=== PATIENT | male | born 1960 | race Caucasian/White ===

== ENCOUNTER 2020-03-13 13:52 | Outpatient (CLI) | payer OTHER, SELFPAY ==
--- NOTE | ~2020-03-13 | XR_ITS ---
XR chest 2V DATE: 03/13/2020 14:25 INDICATION: Chronic shortness of breath. Hypertension. History of asbestos exposure. TECHNIQUE: 2 views COMPARISON: None FINDINGS: Normal heart size. No hilar or mediastinal enlargement. No pulmonary infiltrate or consolid ation, pleural effusion or pulmonary vascular congestion or pneumothorax. No pleural calcification is identified. Status post anterior cervical thoracic spine surgical fusion. Diffuse idiopathic skeletal hyperostosis and mild dextro scoliosis of the thoracic spine. IMPRESSION: No active cardiopulmonary disease Reviewed, dictated and finalized at location B. RVISOR CORDUROY CUTTING
== END 2020-03-13 13:53 | disposition home or self-care (01) ==
PROVIDERS: PCP Family Medicine; Visit Provider Family Medicine
DX: I10 Essential (primary) hypertension (principal)
CPT/HCPCS: 71046

== ENCOUNTER 2020-05-23 16:11 | Inpatient (IN) | payer OTHER, SELFPAY ==
--- NOTE | ~2020-05-23 | CT_ITS ---
EXAMINATION: CT thoracic spine wo con DATE: 05/23/2020 18:01 INDICATION: Back pain. TECHNIQUE: Computed tomography (CT) of the thoracic spine was performed without intravenous contrast. Automated exposure control and iterative reconstruction technique were employed. The dose-length pro duct was 1769.78 mGy-cm. COMPARISON: None FINDINGS: There is 7 degrees dextrocurvature of the thoracic spine. Vertebral body heights are normal . There are changes of anterior fusion procedure from C5 to C7 with anterior plate and screws and hea led interbody bone graft. There is mildly decreased disc height at most levels of thoracic spine. The re is multilevel facet joint osteoarthritis, severe on the right at T3-T4 and T5-T6 and severe on the left at T10-T11. There is multilevel level mild neural foraminal stenosis. There is moderate neural foraminal stenosis on the right at T6-T7 and T10-T11 and on the left at T9-T10 and T10-T11. There is mild central canal stenosis at T7-T8, T9-T10, and T10-T11. IMPRESSION: 1. Mild thoracic spondylosis. 2. Anterior fusion procedure from C5 to C7. Reviewed, dictated and finalized at location A. ENTRATOR OPERATOR
--- NOTE | ~2020-05-23 | CT_ITS ---
EXAMINATION: CT brain wo con DATE: 05/23/2020 18:00 INDICATION: Headache. TECHNIQUE: Computed tomography (CT) of the head was performed without intravenous contrast. The mA wa s adjusted according to patient size. Iterative reconstruction technique was employed. The dose-lengt h product was 605.33 mGy-cm. COMPARISON: None FINDINGS: There is no intracranial hemorrhage, acute infarction, or abnormal intracranial mass lesion . There are scattered areas of low attenuation in the cerebral white matter. The ventricles are latanya l in size. The orbits are normal. The paranasal sinuses are clear. The mastoid air cells are normal. IMPRESSION: 1. Mild nonspecific cerebral white matter disease, which likely represents chronic small vessel ische narendra disease. Reviewed, dictated and finalized at location A. Y SPREADER HELPER IMPRESSION: 1. Mild nonspecific cerebral white matter disease, which likely represents elderly sitter sharmila small vessel ischemic disease.
--- NOTE | ~2020-05-23 | CT_ITS ---
EXAMINATION: CT cervical spine wo con DATE: 05/23/2020 18:00 INDICATION: Neck injury. TECHNIQUE: Computed tomography (CT) of the cervical spine was performed without intravenous contrast. Automated exposure control and iterative reconstruction technique were employed. The dose-length pro duct was 448.80 mGy-cm. COMPARISON: None FINDINGS: There is kyphosis of upper cervical spine. Vertebral body heights are normal. There are walt nges of anterior fusion procedure from C5 to C7 with healed interbody bone graft and anterior plate a nd screws. There is mildly decreased disc height at C3-C4 and C7-T1 and moderately decreased disc hei ght at C4-C5. The osseous central spinal canal is developmentally small from C1 to C7. The following disc levels are specifically discussed: C2-C3: There is ankylosis of the uncovertebral joints without hypertrophy. There is ankylosis of the facet joints with mild right and severe left hypertrophy. There is mild left neural foraminal stenosi s. There is no central canal stenosis. C3-C4: There is moderate bilateral uncovertebral joint osteoarthritis. There is severe bilateral face t joint osteoarthritis. There is moderate bilateral neural foraminal stenosis. There is mild central canal stenosis. C4-C5: There is moderate and severe left uncovertebral joint osteoarthritis. There is mild right and severe left facet joint osteoarthritis. There is mild right and moderate left neural foraminal stenos is. There is moderate central canal stenosis. C5-C6: There is no uncovertebral joint hypertrophy. There is ankylosis of the facet joints without hy pertrophy. There is no neural foraminal stenosis. There is mild central canal stenosis. C6-C7: There is mild bilateral uncovertebral joint hypertrophy. There is ankylosis of the facet joint s with mild bilateral hypertrophy. There is mild bilateral neural foraminal stenosis. There is mild c entral canal stenosis. C7-T1: There is mild bilateral uncovertebral joint osteoarthritis. There is severe bilateral facet jeane int osteoarthritis. There is mild bilateral neural foraminal stenosis. There is mild central canal st enosis. IMPRESSION: 1. No fracture. 2. Moderate cervical spondylosis. 3. Anterior fusion procedure from C5 to C7. Reviewed, dictated and finalized at location A. AIGN MARKETING MANAGER
--- NOTE | ~2020-05-23 | XR_ITS ---
EXAMINATION: XR chest 2V DATE: 05/23/2020 18:01 INDICATION: Generalized weakness. TECHNIQUE: Frontal and lateral views of the chest were obtained. COMPARISON: Chest 2 views 03/13/2020 FINDINGS: The chest demonstrates clear lungs without pneumonia, pleural effusion, or pneumothorax. Th e heart size is normal. There are changes of anterior fusion procedure in cervical spine. IMPRESSION: 1. No acute cardiopulmonary disease. Reviewed, dictated and finalized at location A. TING MACHINE OPERATOR
[2020-05-23 16:33] VITALS: BP 114/87; PULSE 73; RESP 20; TEMP 35.9; O2SAT 99
--- NOTE | 2020-05-23 16:49 | ECG_ITS ---
Measurements Intervals [place] Rate: 73 P: 51 UT: 208 QRS: -56 QRSD: 120 T: 37 QT: 359 QTc: 398 Interpretive Statements SINUS RHYTHM WITH FIRST DEGREE AV BLOCK INCOMPLETE LEFT BUNDLE BRANCH BLOCK LEFT ANTERIOR FASCICULAR BLOCK BASELINE ARTIFACT- I, II, AVF, V3 ABNORMAL ECG Electronically Signed On 05-23-2020 19:03:32 HANDBAG FINISHER by Rene Mccormick D.O.
[2020-05-23] MEDS: SODIUM CHLORIDE 0.9% IV 1,000 ML 999 ML IV CONT ×2 (17:08→18:16)
[2020-05-23 17:30] VITALS: BP 116/80; PULSE 73; RESP 16
[2020-05-23 17:38] LABS: Basophils Absolute Auto 0.07 K/mm3 (0.00-0.10); Basophils Percent Auto 0.9 % (0.0-1.0); Eosinophils Absolute Auto 0.08 K/mm3 (0.02-0.50); Hemoglobin 16.2 g/dL (14.0-18.0); Immature Granulocyte Absolute 0.03 K/mm3 (0.00-0.00); Immature Granulocyte Percent A 0.4 % (0.0-0.0); Lymphocytes Absolute Auto 2.04 K/mm3 (1.10-4.50); Lymphocytes Percent Auto 25.1 % (18.0-42.0); Mean Corpuscular HGB Conc 35.2 g/dL (32.0-36.0); Mean Corpuscular Hemoglobin 30.6 pg (27.0-31.0); Mean Platelet Volume 10.1 fl (8.7-11.0); Monocytes Absolute Auto 0.56 K/mm3 (0.10-0.90); Monocytes Percent Auto 6.9 % (2.0-11.0); Neutrophils Absolute Auto 5.4 K/mm3 (1.7-7.2); Neutrophils Percent Auto 65.7 % (50.0-70.0); Platelet Count Result 288 K/mm3 (150-420); Red Blood Count 5.29 M/mm3 (4.70-6.10); Red Cell Distribution Width 11.8 % (11.6-14.4); White Blood Count 8.1 K/mm3 (4.8-10.8)
[2020-05-23 17:53] LABS: Alanine Aminotransferase 36 U/L (16-63); Alkaline Phosphatase 97 U/L (46-116); Anion Gap 16 mmol/L (8-16); Aspartate Amino Transferase 19 U/L (15-37); Bilirubin,Total 0.6 mg/dL (0.00-1.00); Blood Urea Nitrogen 80 mg/dL (7-18); Calcium 9.1 mg/dL (8.5-10.1); Carbon Dioxide 16 mmol/L (21-32); Chloride 97 mmol/L (98-108); Estimated CRCL calculation 29 ml/min; Estimated Glomerular Filt Rate 21; Glucose 244 mg/dL (70-99); Lactic Acid Reflex 1.6 mmol/L (0.4-2.0); Magnesium 2.8 mg/dL (1.8-2.4); Osmolality Calculated 300 mOsm/kg (285-295); Potassium 4.3 mmol/L (3.5-5.1); Sodium 129 mmol/L (136-145); Total Protein 7.8 g/dL (6.4-8.2); Troponin I 5.5 ng/L (0.00-60.4)
[2020-05-23 17:56] LABS: BNP < 5.0 pg/mL (0-100)
[2020-05-23 18:09] LABS: Appearance Urine Clear (Clear); Bilirubin Urine 1+ (Negative); Color Urine Yellow (Yellow); Glucose Urine UA Trace (Negative); Ketones Urine Negative (Negative); Leukocyte Esterase Ur Negative (Negative); Nitrate Urine Negative (Negative); Protein Urine 1+ (Negative); Specific Grav Ur >= 1.030 (1.010-1.020); Urobilinogen Urine 0.2 mg/dL (0.2-1.0)
[2020-05-23 18:16] LABS: Hemoglobin A1C 10.7 % (<5.7)
[2020-05-23 18:22] LABS: Add Urine Microscopic? YES; Blood Urine Trace (Negative); WBC Urine >75 /hpf (0-3)
[2020-05-23 18:23] LABS: Bacteria Urine 3+ /hpf; Granular Casts Urine 15-19 /lpf; White Blood Cell Casts Urine Present /lpf
[2020-05-23 18:24] LABS: Cellular Casts Urine Present /lpf; Mucus Urine Heavy /lpf
--- NOTE | 2020-05-23 18:31 | ED.WEAKNESS ---
HPI - Weakness General Chief complaint: Weakness Stated complaint: weakness/dehydration Source: patient and family Mode of arrival: ambulatory History of Present Illness HPI Narrative: THIS IS A 59-YEAR-OLD GENTLEMAN WITH A HISTORY OF HYPERTENSION, HYPERLIPIDEMIA AND UNBEKNOWNST TO HIM HISTORY OF DIABETES THAT HIS PRIMARY CARE PHYSICIANS HAVE BEEN MONITORING APPARENTLY. THE PATIENT PRESENTS AFTER HE RECEIVED HIS 2ND COVID VACCINE ON WEDNESDAY WITH INCREASING WEAKNESS PATIENT HAS ALSO A DENTAL EXTRACTION AND HAS HAD DECREASED APPETITE. PATIENT HAD AN EPISODE WHERE HE WAS WEAK AND HAD A FALL ACTUALLY FELL 3 TIMES TODAY STRIKING THE BACK OF HIS HEAD INJURING HIS NECK AND UPPER BACK AREA. CURRENTLY DENIES ANY CHEST PAIN NO SHORTNESS OF BREATH NO FEVER CHILLS NO DYSURIA NO FLANK PAIN. MD Complaint: generalized weakness Onset (ago): day(s) Duration: constant Location: generalized Migration: none Severity: severe Severity scale (1-10): 10 Relieving factors: rest Associated symptoms: loss of appetite Related Data Home Medications Medication Instructions Recorded Confirmed atorvastatin 40 mg PO DAILY 05/23/20 05/23/20 citalopram 20 mg PO DAILY 05/23/20 05/23/20 hydrocodone-acetaminophen 1 tablet PO Q6-12H PRN 05/23/20 05/23/20 lisinopril-hydrochlorothiazide 1 tablet PO DAILY 05/23/20 05/23/20 ropinirole 0.5 mg PO HS 05/23/20 05/23/20 Allergies Allergy/AdvReac Type Severity Reaction Status Date / Time No Known Allergies Allergy Verified 05/23/20 16:43 Review of Systems Review of Systems: All systems reviewed & are unremarkable except as noted in HPI and below PMFSH Past Medical History Medical History Diabetes mellitus HLD (hyperlipidemia) HTN (hypertension) Social History Social History Gender identity (if verbalized by the patient): Male Exam Const: General: no acute distress and alert Orientation/consciousness: patient oriented x3 HENMT: Head: normal to inspection and contusion Eyes: Conjunctivae: conjunctivae normal Pupils: Equal, round and reactive pupils present EOM: EOMs intact bilaterally Direct Ophthalmoscopy: no photophobia Neck: Neck: normal visual inspection, no lymphadenopathy and no meningeal signs Chest: Chest palpation & inspection: normal inspection of the chest Resp: Effort & Inspection: normal respiratory effort Auscultation: clear to auscultation bilaterally Cardio: Rate: regular rate Rhythm: regular rhythm GI: GI Palp: Yes Soft to palpation Percussion: Yes normal to percussion : Testes: Testes normal Urinary Catheter: Urinary Catheter: patent and draining Back/Spine/Pelvis: Back: no CVA tenderness Skin: General skin exam: normal color Rashes: no rashes Neuro: General: patient oriented x3, moves all extremities, no meningeal signs and no focal motor deficits Extrem: General: normal to inspection and no pedal edema Psych: Appearance: grossly normal Mental Status: mental status grossly normal Thought content: Yes Normal thought content present Course Course Emergency Course: reassessment of patient continues to feel weak, feels comfortable and his is by his side and reviewed the scans and lab work and the patient has been told that he is a diabetic and he has some acute kidney disease and needs to be admitted for hydration and to control his blood sugars. Vital Signs Vital signs: Vital Signs Temperature 35.9 C L 05/23/20 16:33 Pulse Rate 73 05/23/20 16:33 Respiratory Rate 20 05/23/20 16:33 Blood Pressure 114/87 05/23/20 16:33 Pulse Oximetry 99 05/23/20 16:33 Temperature 35.9 C L 05/23/20 16:33 Pulse Rate 73 05/23/20 17:30 Respiratory Rate 16 05/23/20 17:30 Blood Pressure 116/80 05/23/20 17:30 Pulse Oximetry 99 05/23/20 16:33 MDM - Weakness Lab Data Result diagrams: 05/23/20 17:26 05/23/20 1
[2020-05-23 18:38] LABS: Creatine Kinase 162 U/L (39-308)
[2020-05-23 19:17] VITALS: BP 126/88; PULSE 78; RESP 18; TEMP 36.4; O2SAT 100
[2020-05-23 19:21] VITALS: BMI 32.8
[2020-05-23 19:30] VITALS: O2SAT 99
--- NOTE | 2020-05-23 19:35 | ADMGEN ---
This patient, Rohan Ch, was admitted to 2nd Floor Room 209-1. Patient oriented to hospital policies and general routines including ID bracelet, bed and alarms, visiting hours, pain management, procedures, bathroom and other care routines, personal items, room service/diet, and visiting hours. grinder lap applied and reporting at central monitor. Patient encouraged to report perceived risks to care and to ask questions if they do not understand what they are told or what they should do.
[2020-05-23] MEDS: SODIUM CHLORIDE 0.9% IV 1,000 ML 100 ML IV CONT (19:51)
[2020-05-23] MEDS: rOPINIRole HCL 0.5 MG TABLET PO (20:12)
[2020-05-23] MEDS: IBUPROFEN 400 MG TABLET 800 MG PO (20:20)
[2020-05-23] MEDS: ACETAMINOPHEN 325 MG TABLET 650 MG PO (23:19)
[2020-05-24] VITALS: BP 106/71; PULSE 62; RESP 18; TEMP 36.6; O2SAT 96
--- NOTE | 2020-05-24 01:56 | PC.NURSE ---
pt sleeping, no evidence of distress noted at this time, call light and belongings within reach, pvc monitor on, iv fluids infusing per order
[2020-05-24 04:00] VITALS: BP 95/53; PULSE 68; RESP 18; TEMP 37.2; O2SAT 97
[2020-05-24] MEDS: SODIUM CHLORIDE 0.9% IV 1,000 ML 100 ML IV CONT ×2 (04:53→14:19)
[2020-05-24 05:46] LABS: Basophils Absolute Auto 0.05 K/mm3 (0.00-0.10); Basophils Percent Auto 0.7 % (0.0-1.0); Eosinophils Absolute Auto 0.19 K/mm3 (0.02-0.50); Eosinophils Percent Auto 2.6 % (1.0-6.0); Hematocrit 43.2 % (40.0-54.0); Hemoglobin 15.1 g/dL (14.0-18.0); Immature Granulocyte Absolute 0.03 K/mm3 (0.00-0.00); Immature Granulocyte Percent A 0.4 % (0.0-0.0); Lymphocytes Absolute Auto 2.64 K/mm3 (1.10-4.50); Lymphocytes Percent Auto 36.2 % (18.0-42.0); Mean Corpuscular Hemoglobin 30.3 pg (27.0-31.0); Mean Corpuscular Volume 86.6 fL (78.0-102.0); Mean Platelet Volume 10.2 fl (8.7-11.0); Monocytes Absolute Auto 0.54 K/mm3 (0.10-0.90); Monocytes Percent Auto 7.4 % (2.0-11.0); Neutrophils Absolute Auto 3.9 K/mm3 (1.7-7.2); Neutrophils Percent Auto 52.7 % (50.0-70.0); Platelet Count Result 261 K/mm3 (150-420); Red Blood Count 4.99 M/mm3 (4.70-6.10); Red Cell Distribution Width 11.8 % (11.6-14.4); White Blood Count 7.3 K/mm3 (4.8-10.8)
[2020-05-24 06:03] LABS: Alanine Aminotransferase 35 U/L (16-63); Albumin Level 3.5 g/dL (3.4-5.0); Alkaline Phosphatase 87 U/L (46-116); Anion Gap 13 mmol/L (8-16); Aspartate Amino Transferase 19 U/L (15-37); Bilirubin,Total 0.6 mg/dL (0.00-1.00); Blood Urea Nitrogen 74 mg/dL (7-18); Calcium 8.5 mg/dL (8.5-10.1); Carbon Dioxide 18 mmol/L (21-32); Chloride 101 mmol/L (98-108); Estimated CRCL calculation 36 ml/min; Estimated Glomerular Filt Rate 28; Glucose 202 mg/dL (70-99); Magnesium 2.6 mg/dL (1.8-2.4); Osmolality Calculated 301 mOsm/kg (285-295); Sodium 132 mmol/L (136-145); Total Protein 6.6 g/dL (6.4-8.2)
[2020-05-24 07:59] LABS: Glucose Point of Care 208 (65-105)
[2020-05-24 08:00] VITALS: BP 108/54; PULSE 70; PULSE 74; RESP 20; TEMP 36.6; O2SAT 96
[2020-05-24] MEDS: hydroCHLOROthiazide 12.5 MG CAPSULE PO (09:10)
[2020-05-24] MEDS: ATORVASTATIN 40 MG TABLET PO (09:11)
[2020-05-24] MEDS: CITALOPRAM HYDROBROMIDE 20 MG TABLET PO (09:11)
[2020-05-24] MEDS: DOCUSATE SODIUM 100 MG CAPSULE PO ×2 (09:11→16:51)
[2020-05-24] MEDS: lisinopriL 20 MG TABLET PO (09:11)
[2020-05-24 11:35] LABS: Glucose Point of Care 201 (65-105)
[2020-05-24 12:00] VITALS: PULSE 78; RESP 20; TEMP 36.6; O2SAT 96
--- NOTE | 2020-05-24 12:29 | PM.IMHP ---
H&P: HPI History of Present Illness Date/Time: 05/24/20 12:29 <GIO Rodriges - Last Filed: 05/24/20 12:48> Chief Complaint: Acute kidney injury, dehydration, newly diagnosed diabetes <GIO Rodriges - Last Filed: 05/24/20 12:48> Narrative: Rohan Ch is a 59 year old male that presented to urgent care with weakness patient has a past medical history of diabetes, HLD and hypertension. According to patient approximately 2 weeks ago he had a dental procedure complaining and he currently has a dry socket which has caused some much pain. Patient notes that as a result of the pain caused by his dental procedure his fluid and oral intake has decreased which could have caused him to dehydration patient also notes that he and has became more weak. Patient notes that since his vaccine he has fell 3 times at home. On admission patient's WBCs hemoglobin hematocrit were all within normal limits, patient sodium level was 129, creatinine 3.08 BUN 80 GFR 21 blood sugar 244 hemoglobin A1c 10.7, osmolality 300, magnesium 2.8, UA with WBCs bacteria. CT of the head, spine chest x-ray unremarkable. EKG sinus rhythm with first-degree block with a heart rate of 73. Patient is currently on Rocephin. The patient denies SOB, CP, palpitation, extremity numbness, lightheadedness, dizziness, constipation, diarrhea, chills, or fever. Patient notes that his condition is greatly improved since the use of IV fluid Disposition: Patient will remain an additional day and to his renal functions improved he was then discharged home with self-care <GIO Rodriges - Last Filed: 05/24/20 12:48> Review of Systems Review of Systems: All systems reviewed & are unremarkable except as noted in HPI and below (10 point system review) <GIO Rodriges - Last Filed: 05/24/20 12:48> [facility] Past Medical History Medical History: Medical History Diabetes mellitus HLD (hyperlipidemia) HTN (hypertension) <GIO Rodriges - Last Filed: 05/24/20 12:48> Social History Social History: Social History Smoking status: Never smoker Alcohol intake: never Substance use: never Gender identity (if verbalized by the patient): Male Spiritual care concerns: No <GIO Rodriges - Last Filed: 05/24/20 12:48> Meds Home Medications and Allergies Home medications: Home Medications Medication Instructions Recorded Confirmed Type atorvastatin 40 mg PO DAILY 05/23/20 05/23/20 History citalopram 20 mg PO DAILY 05/23/20 05/23/20 History hydrocodone-acetaminophen 1 tablet PO Q6-12H PRN 05/23/20 05/23/20 History lisinopril-hydrochlorothiazide 1 tablet PO DAILY 05/23/20 05/23/20 History ropinirole 0.5 mg PO HS 05/23/20 05/23/20 History <GIO Rodriges - Last Filed: 05/24/20 12:48> Allergies/Adverse reactions: Allergies Allergy/AdvReac Type Severity Reaction Status Date / Time No Known Allergies Allergy Verified 05/23/20 16:43 <GIO Rodriges - Last Filed: 05/24/20 12:48> Vital Signs Vital Signs - 24 hr 05/23/20 16:33 05/23/20 17:30 05/23/20 19:17 Temperature 96.7 F L 97.6 F Pulse Rate 73 73 78 Respiratory Rate 20 16 18 Blood Pressure 114/87 116/80 126/88 Pulse Oximetry 99 100 05/23/20 19:30 05/24/20 00:00 05/24/20 04:00 Temperature 97.8 F 98.9 F Pulse Rate 62 68 Respiratory Rate 18 18 Blood Pressure 106/71 95/53 L Pulse Oximetry 99 96 97 05/24/20 08:00 Temperature 98 F Pulse Rate 70 Respiratory Rate 20 Blood Pressure 108/54 L Pulse Oximetry 96 <GIO Rodriges - Last Filed: 05/24/20 12:48> Exam Narrative: Exam Narrative: GENERAL: This is a well-nourished, well-developed patient, in no apparent distress. HEAD: normocephalic, atraumatic. EYES: PERRL. Sclera clear/white. Vision is grossly intact. EARS: E
[2020-05-24] MEDS: IBUPROFEN 400 MG TABLET 800 MG PO (14:20)
[2020-05-24 16:00] VITALS: BP 96/56; PULSE 63; RESP 16; TEMP 36.2; O2SAT 100
[2020-05-24] MEDS: ENOXAPARIN 40 MG/0.4 ML SYRINGE SUB-Q (16:51)
[2020-05-24 17:21] LABS: Glucose Point of Care 147 (65-105)
[2020-05-24 20:00] VITALS: BP 113/57; PULSE 76; RESP 18; TEMP 36.7; O2SAT 97
[2020-05-24] MEDS: rOPINIRole HCL 0.5 MG TABLET PO (21:19)
[2020-05-24] MEDS: traZODone HCL 50 MG TABLET PO (21:20)
[2020-05-24 21:29] LABS: Glucose Point of Care 261 (65-105)
--- NOTE | 2020-05-24 21:30 | PC.NURSE ---
pt requests sleeping pill, states he feels 100% better , iv running, call light in reach
[2020-05-25] VITALS: BP 106/76; PULSE 68; RESP 20; TEMP 36.8; O2SAT 95
--- NOTE | 2020-05-25 00:21 | PC.NURSE ---
Pt sitting up at bedside and doesnt voice any c/o shortness of breath or pain.
[2020-05-25] MEDS: SODIUM CHLORIDE 0.9% IV 1,000 ML 100 ML IV CONT (00:59)
[2020-05-25] MEDS: IBUPROFEN 400 MG TABLET 800 MG PO (01:13)
--- NOTE | 2020-05-25 01:15 | PC.NURSE ---
Pt c/o dry socket pain and asked for pain medication. Pt given ibuprofen 800 mg po to relieve discomfort.
[2020-05-25 04:00] VITALS: BP 92/45; PULSE 60; RESP 20; TEMP 36.8; O2SAT 95
--- NOTE | 2020-05-25 04:11 | PC.NURSE ---
Pt asleep and no signs of discomfort noted. Ibuprofen effective in relieving pain and discomfort.
[2020-05-25 07:44] VITALS: BP 88/41; PULSE 57; RESP 16; TEMP 36.4; O2SAT 98
[2020-05-25 07:46] LABS: Glucose Point of Care 181 (65-105)
[2020-05-25] MEDS: hydroCHLOROthiazide 12.5 MG CAPSULE PO (08:31)
[2020-05-25] MEDS: DOCUSATE SODIUM 100 MG CAPSULE PO (08:31)
[2020-05-25] MEDS: CITALOPRAM HYDROBROMIDE 20 MG TABLET PO (08:32)
[2020-05-25] MEDS: lisinopriL 20 MG TABLET PO (08:32)
[2020-05-25] MEDS: ATORVASTATIN 40 MG TABLET PO (08:32)
[2020-05-25 09:35] LABS: Hematocrit 41.9 % (40.0-54.0); Mean Corpuscular HGB Conc 33.4 g/dL (32.0-36.0); Mean Corpuscular Hemoglobin 29.7 pg (27.0-31.0); Mean Corpuscular Volume 88.8 fL (78.0-102.0); Platelet Count Result 226 K/mm3 (150-420); Red Blood Count 4.72 M/mm3 (4.70-6.10); Red Cell Distribution Width 11.8 % (11.6-14.4); White Blood Count 5.5 K/mm3 (4.8-10.8)
[2020-05-25 09:39] LABS: Add Urine Microscopic? NO; Appearance Urine Clear (Clear); Bilirubin Urine Negative (Negative); Blood Urine Negative (Negative); Color Urine Yellow (Yellow); Glucose Urine UA Negative (Negative); Ketones Urine Negative (Negative); Leukocyte Esterase Ur Negative LEU/UL (Negative); Nitrate Urine Negative (Negative); Protein Urine Negative (Negative); Specific Grav Ur 1.025 (1.010-1.020); Urobilinogen Urine 0.2 mg/dL (0.2-1.0); pH Urine 5.5 (5.0-8.0)
[2020-05-25 10:29] LABS: Alanine Aminotransferase 36 U/L (16-63); Albumin Level 3.4 g/dL (3.4-5.0); Alkaline Phosphatase 87 U/L (46-116); Anion Gap 13 mmol/L (8-16); Aspartate Amino Transferase 16 U/L (15-37); Bilirubin,Total 0.5 mg/dL (0.00-1.00); Blood Urea Nitrogen 53 mg/dL (7-18); Calcium 8.4 mg/dL (8.5-10.1); Carbon Dioxide 18 mmol/L (21-32); Chloride 103 mmol/L (98-108); Estimated CRCL calculation 53 ml/min; Estimated Glomerular Filt Rate 44; Glucose 223 mg/dL (70-99); Osmolality Calculated 299 mOsm/kg (285-295); Sodium 134 mmol/L (136-145); Total Protein 6.3 g/dL (6.4-8.2)
--- NOTE | 2020-05-25 11:15 | P.DS_ITS ---
DS: Admitting Diagnosis Admitting Diagnosis Admitting Diagnosis: Acute kidney injury, dehydration, post fall, urinary tract infection DS: Discharge Diagnosis Discharge Diagnosis (1) Diabetes mellitus due to underlying condition with hyperosmolarity without nonketotic hyperglycemic-hyperosmolar coma: Code(s): E08.00 - Diabetes mellitus due to underlying condition with hyperosmolarity without nonketotic hyperglycemic-hyperosmolar coma ([facility]) Status: Acute Assessment and Plan: * Patient's A1c 10.7 * Patient started on Januvia 50 mg daily, did not start Metformin due to GFR and 29 on admission * Patient will have to follow-up with his primary care physician for any other medication adjustment * Patient ordered a glucose meter instructed to take blood sugar for 1 week in the a.m. and give results to the primary care physician * Patient's A1c 10.7 * Patient started on Januvia 50 mg daily, did not start Metformin due to GFR and 29 on admission * Patient will have to follow-up with his primary care physician for any other medication adjustment (2) Dehydration: Code(s): E86.0 - Dehydration Status: Acute Assessment and Plan: * Resolved * Secondary to poor fluid intake * Continue IV fluid * Sodium on admission (3) UTI (urinary tract infection): Qualifiers: Hematuria presence: without hematuria Urinary tract infection type: acute cystitis Qualified Code(s): N30.00 - Acute cystitis without hematuria Code(s): N39.0 - Urinary tract infection, site not specified Status: Acute Assessment and Plan: * UA with WBCs bacteria * Patient currently on Rocephin will discharge with Cipro * UA culture pending post antibiotic treatment * Blood culture pending preliminary no growth (4) Diabetes mellitus: Code(s): E11.9 - Type 2 diabetes mellitus without complications Status: Acute Assessment and Plan: * Newly diagnosed * According to patient his primary care physician was monitoring his blood sugars to determine whether or not he was a diabetic * Patient will start on Januvia 50 mg daily, instructed to take blood sugar for 1 week and give report to primary care physician * He will have to follow-up with his primary care physician to determine further treatment (5) HTN (hypertension): Code(s): I10 - Essential (primary) hypertension Status: Acute Assessment and Plan: * Patient's blood pressure soft * Supine 129/83, sitting 114/63 and standing 124/74 * Continue lisinopril/HCTZ (6) HLD (hyperlipidemia): Code(s): E78.5 - Hyperlipidemia, unspecified Status: Acute Assessment and Plan: * Continue statins (7) Hyponatremia: Code(s): E87.1 - Hypo-osmolality and hyponatremia Status: Acute Assessment and Plan: * Secondary to dehydration * Improving * NA 129-->132-->134 * (8) Acute kidney injury: Code(s): N17.9 - Acute kidney failure, unspecified Status: Acute Assessment and Plan: * Secondary to dehydration * Improved * BUN80-->74,-->53 Cr3.08-->2.37-->1.64 * Received report from outside hospital on 11/14/2017 creatinine at 2.80 * Repeat CMP in 1 week with results going to his primary care physician DS: Summary Hospital Course Reason for hospitalization: Urinary tract infection, acute renal injury, status post fall, weakness, dehydration Hospital Course: Rohan Ch is a 59 year old male that presented to our ED with weakness.Patient has a past medical history of diabetes, HLD and hypertension. Acc
--- NOTE | 2020-05-25 11:15 | PM.DS ---
DS: Admitting Diagnosis Admitting Diagnosis Admitting Diagnosis: Acute kidney injury, dehydration, post fall, urinary tract infection DS: Discharge Diagnosis Discharge Diagnosis (1) Diabetes mellitus due to underlying condition with hyperosmolarity without nonketotic hyperglycemic-hyperosmolar coma: Code(s): E08.00 - Diabetes mellitus due to underlying condition with hyperosmolarity without nonketotic hyperglycemic-hyperosmolar coma ([facility]) Status: Acute Assessment and Plan: Patient's A1c 10.7 Patient started on Januvia 50 mg daily, did not start Metformin due to GFR and 29 on admission Patient will have to follow-up with his primary care physician for any other medication adjustment Patient ordered a glucose meter instructed to take blood sugar for 1 week in the a.m. and give results to the primary care physician Patient's A1c 10.7 Patient started on Januvia 50 mg daily, did not start Metformin due to GFR and 29 on admission Patient will have to follow-up with his primary care physician for any other medication adjustment (2) Dehydration: Code(s): E86.0 - Dehydration Status: Acute Assessment and Plan: Resolved Secondary to poor fluid intake Continue IV fluid Sodium on admission (3) UTI (urinary tract infection): Qualifiers: Hematuria presence: without hematuria Urinary tract infection type: acute cystitis Qualified Code(s): N30.00 - Acute cystitis without hematuria Code(s): N39.0 - Urinary tract infection, site not specified Status: Acute Assessment and Plan: UA with WBCs bacteria Patient currently on Rocephin will discharge with Cipro UA culture pending post antibiotic treatment Blood culture pending preliminary no growth (4) Diabetes mellitus: Code(s): E11.9 - Type 2 diabetes mellitus without complications Status: Acute Assessment and Plan: Newly diagnosed According to patient his primary care physician was monitoring his blood sugars to determine whether or not he was a diabetic Patient will start on Januvia 50 mg daily, instructed to take blood sugar for 1 week and give report to primary care physician He will have to follow-up with his primary care physician to determine further treatment (5) HTN (hypertension): Code(s): I10 - Essential (primary) hypertension Status: Acute Assessment and Plan: Patient's blood pressure soft Supine 129/83, sitting 114/63 and standing 124/74 Continue lisinopril/HCTZ (6) HLD (hyperlipidemia): Code(s): E78.5 - Hyperlipidemia, unspecified Status: Acute Assessment and Plan: Continue statins (7) Hyponatremia: Code(s): E87.1 - Hypo-osmolality and hyponatremia Status: Acute Assessment and Plan: Secondary to dehydration Improving NA 129-->132-->134 (8) Acute kidney injury: Code(s): N17.9 - Acute kidney failure, unspecified Status: Acute Assessment and Plan: Secondary to dehydration Improved BUN80-->74,-->53 Cr3.08-->2.37-->1.64 Received report from outside hospital on 11/14/2017 creatinine at 2.80 Repeat CMP in 1 week with results going to his primary care physician DS: Summary Hospital Course Reason for hospitalization: Urinary tract infection, acute renal injury, status post fall, weakness, dehydration Hospital Course: Rohna Ch is a 59 year old male that presented to our ED with weakness.Patient has a past medical history of diabetes, HLD and hypertension. According to patient approximately 2 weeks ago he had a dental procedure completed and he currently has a dry socket which has caused him much pain. Patient notes that as a result of the pain caused by his dental procedure his fluid and oral intake has decreased which could have caused him to dehydration patient also notes that he became more weak. Patient notes that since his vaccine he has fell 3 times at home. On admission patient's W
[2020-05-25 11:46] LABS: Glucose Point of Care 226 (65-105)
--- NOTE | 2020-05-28 14:26 | PC.NURSE ---
Pt states he received and understood his discharge instructions. Pt also states those nurses were absolutely great! .
== END 2020-05-25 12:30 | disposition home or self-care (01) | DRG 641 ==
LOC: CHSED 18:38 → CHS2ND 18:44
PROVIDERS: Nurse Practitioner; Admitting Provider Emergency Medicine; Emergency Provider Emergency Medicine; PCP Family Medicine; Visit Provider Emergency Medicine
DX: E86.0 Dehydration (principal); N30.00 Acute cystitis without hematuria; E78.5 Hyperlipidemia, unspecified; I10 Essential (primary) hypertension; E11.9 Type 2 diabetes mellitus without complications; N17.9 Acute kidney failure, unspecified; N39.0 Urinary tract infection, site not specified; E87.1 Hypo-osmolality and hyponatremia; R29.6 Repeated falls
CPT/HCPCS: 36415; 70450; 71046; 72125; 72128; 80053; 81001; 81003; 82550; 82948; 83036; 83605; 83735; 83880; 84484; 85025; 85027; 87040; 93005; 96360; 97161; 97165; 99285; A9270; J0696; J1650; J1815; J7030

== ENCOUNTER 2020-09-07 08:37 | Outpatient (CLI) | payer OTHER, SELFPAY ==
--- NOTE | ~2020-09-07 | XR_ITS ---
EXAMINATION: XR knee RT 3V EXAM DATE: 09/07/2020 09:02 INDICATION: No known recent injury provided at this time. Pain of the right knee. TECHNIQUE: Three projections of the right knee standing. There is no prior study for comparison. FINDINGS: No evidence osteochondral defect or joint body in the right knee joint. There is moderate medial tibiofemoral, mild patellofemoral primary osteoarthritis. Trace joint fluid. There are no acu te fractures or dislocations identified. There is no subcutaneous gas. The soft tissue is unremarka ble. There are no radiopaque foreign bodies. IMPRESSION: Moderate right medial tibiofemoral compartment osteoarthritis. Reviewed, dictated and finalized at location A.
--- NOTE | ~2020-09-07 | XR_ITS ---
EXAMINATION: XR shoulder RT min 2V EXAM DATE: 09/07/2020 09:01 INDICATION: Right shoulder pain, bursitis. No known recent trauma. TECHNIQUE: The following right shoulder projections obtained: frontal projection with internal rotati on, frontal projection with external rotation, Grashey, and scapular Y view (4+ views). Correlation i s made to contralateral shoulder same day. FINDINGS: No evidence of right shoulder rotator cuff calcific tendinosis. There is moderate glenoh umeral joint, moderate acromioclavicular joint primary osteoarthritis. There are no acute fractures o r dislocations identified. There is no subcutaneous gas. The soft tissue is unremarkable. Cervica l fusion hardware. IMPRESSION: Moderate right shoulder osteoarthritis. Reviewed, dictated and finalized at location A.
--- NOTE | ~2020-09-07 | XR_ITS ---
EXAMINATION: XR shoulder LT min 2V EXAM DATE: 09/07/2020 09:02 INDICATION: No known recent injury provided at this time. Pain of the left shoulder. TECHNIQUE: The following left shoulder projections obtained: frontal projection with internal rotatio n, frontal projection with external rotation, Grashey, and scapular Y view (4+ views). There is no p rior study for comparison. FINDINGS: No evidence of left shoulder rotator cuff calcific tendinosis. There is mild to moderate glenohumeral joint, moderate acromioclavicular joint primary osteoarthritis. There are no acute frac tures or dislocations identified. There is no subcutaneous gas. The soft tissue is unremarkable. Cervical fusion hardware. IMPRESSION: Moderate left acromioclavicular, mild to moderate glenohumeral osteoarthritis. Reviewed, dictated and finalized at location A. IMPRESSION: Moderate left acromioclavicular, mild to moderate glenohumeral oste oarthritis.
== END 2020-09-07 08:38 | disposition home or self-care (01) ==
LOC: CHSIMG 08:39
PROVIDERS: PCP Family Medicine; Visit Provider Family Medicine
DX: M25.561 Pain in right knee (principal); M75.51 Bursitis of right shoulder
CPT/HCPCS: 73030; 73562